=== PATIENT | male | born 1995 | race African-American/Black ===

== ENCOUNTER 2024-06-28 10:54 | Outpatient (AMB) | payer OTHER, SELFPAY ==
--- NOTE | 2024-06-28 11:09 | MHC.PC.OV ---
Vital Signs 06/28/24 11:15 Height 5 ft 9 in Weight 224 lb 2 oz BMI 33.1 BP 122/70 Blood Pressure Location Lt brachial Position Sitting Respiration 12 Pulse 69 Pulse Source Pulse Oximeter Pulse Oximetry (%) 97 Oxygen Delivery Method Room Air Intake Visit Reasons: npv Intake Note: new patient to establish care and patient also needs refill on adhd med. Pearl Glue Operator Required: No Allergies No Known Allergies Allergy (Verified 06/28/24 11:46) Medication List - Last Reconciled 06/28/24 by Magui Barone, REGISTERED VETERINARY TECHNICIAN- dextroamphetamine-amphetamine 20 mg ER (Adderall XR) 20 mg PO DAILY Tobacco use date assessed: 06/28/24 Dental Screening Dental Screen Date: 06/28/24 Did you have a dental visit in the last 12 months?: Yes Did you have a dental problem in the last 6 months where you did not have access to dental care?: No Was dental information given to patient?: Patient has dentist HPI HPI Comments History of Present Illness Details 29 y/o M with ADHD, obesity Surgery: none 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 ADHD - well controlled on Adderal ER. Moves q 1 year d/t sig other schooling. Needs new med prescriber otherwise mood stable. no need for counselor Feels well. ROS: negative Exam: General: Well developed, well nourished, in no acute distress. Appears stated age. Head: Normocephalic, atraumatic. Eyes: Pupils are equal, round and reactive to light and accommodation. Conjunctivae are clear. Vision grossly normal. Ears: TMs clear AU, EACS WNL Nose: Patent, without discharge.Mouth: There are no ulcers or lesions noted. No inflammation, no post nasal drip, no plaques nor exudates. Neck: Supple, no adenopathy or thyromegaly. Lungs: Clear to auscultation bilaterally. No rales, rhonchi or wheeze noted. Good air flow in all moy. Heart: Regular rate and rhythm. No murmurs, click, rubs or gallops are noted. Abdomen: Bowel sounds present in all quadrants. The abdomen is soft, nontender, with no masses or organomegaly noted. No hernias are noted. : Deferred. Reviewed WYATT & recommendations MSK: Joints are nontender, without swelling, redness, or effusions. Range of motion is observed to be normal. Pulses: Peripheral pulses are equal and palpable bilaterally. Extremities: No clubbing, cyanosis nor edema is noted. Neurologic: Gait and station normal. Cranial Nerves 2-12 intact. Motor strength grossly symmetrical and intact. No sensory loss. Balance normal. Skin: No rashes, ulcers, or lesions noted. Turgor is good. Skin color is good. Hair and nails are without abnormalities. Psych: Normal eye contact, affect and mood appropriate, and normal interactions. Patient is alert and appropriate to context. Plan: 90 day refill on adderral, transportation analyst reviewed refer to nn to [facility] care w med prescriber, preferably one that can RX in multiple states and follow him remotely if this is not doable, RTO in 3 months and i will manage routine screening labs today RTO 1 year CPE, sooner PRN PFSH Medical History (Updated 06/28/24 @ 12:51 by Magui Barone, [facility]) ADHD Asthma Surgical History (Updated 06/28/24 @ 11:24 by Deo Mcdonald MA) No pertinent past surgical history Family History (Updated 06/28/24 @ 11:26 by Deo Mcdonald MA) Mother Asthma Maternal Grandmother Asthma Diabetes Cancer Father HTN (hypertension) High cholesterol Cardiovascular disease Alcoholism Maternal Grandfather Diabetes Alcoholism Social History (Updated 06/28/24 @ 11:18 by Deo Mcdonald MA) Household Members: Significant Other Both parents involved: No Caregiver staying overnight: No Housing: Apartment Are you a primary manager intensive care unit to a significant other at home: No Do you presently have visiting nurse or other home services: No 75 years or older and lives alone: No Alcohol intake: never Patient Tobacco Use Status: Never used Tobacco e-Cigarette/Vaping Use: Never Used Second Hand Smoke Exposure: No Current occupational status: employed Current occupation: rn Cognitive needs: No Hearing needs: No Vision needs: Yes (wear glasses) Questionnaire PHQ-9 Over the last 2 weeks, how often have you been bothered by any of the following problems? 1. Little interest or pleasure in doing things: not at all 2. Feeling down, depressed, or hopeless: not at all 3. Trouble falling or staying asleep, or sleeping too much: not at all 4. Feeling tired or having little energy: not at all 5. Poor appetite or overeating: not at all 6. Feeling bad about yourself - or that you are a failure or have let yourself or your family down: not at all 7. Trouble concentrating on things, such as reading the newspaper or watching television: several days 8. Moving or speaking so slowly that other people could have noticed. Or the opposite - being so fidgety or restless that you have been moving around a lot more than usual: not at all 9. Thoughts that you would be better off or of hurting yourself in some way: not at all Total score: 1 Depression Screening Interpretation: Negative Depression Screening Done: Yes 62889 - PHQ-9 Billing: Yes Source: Developed by Drs. Wayne Nava, Leora Grider, Sen Templeton and colleagues, with an educational dashawn from [employer]. Thrive Questionnaire Date Thrive assessed: 06/28/24 I am a: Patient What is your living situation today?: I have a steady place to live Within the past 12 months, did the food you bought not last and you didn't have the money to get more?: Never true Within the past 12 months, did you worry whether your food would run out before you got money to buy more?: Never true Do you have trouble paying for medicines?: No Do you have trouble getting transportation to medical appointments?: No Do you have trouble paying your heating and electricity bill?: No Do you have trouble taking care of your child, family member or friend?: No Do you have trouble with day-to-day activities such as bathing, preparing meals, shopping, managing finances, etc.?: No Are you currently unemployed and looking for a job?: No Are you interested in more education?: No Please select the resources that you would like help with: None Currently or been in a relationship where the following occur: No concerns reported THRIVE Score: 0 AUDIT C Alcohol Use Questionnaire (AUDIT-C) 1. How often do you have a drink containing alcohol?: Never 3. How often do you have six or more drinks on one occasion?: Never Total Score: 0 Score Reviewed/Action Taken: Yes JACKIE-7 AMB Questionnaire JACKIE-7 Date JACKIE - 7 assessed: 06/28/24 Feeling nervous, anxious, or on edge: 0 = Not at all Not being able to stop or control worryin = Not at all Worrying too much about different things: 1 = Several days Trouble relaxin = Not at all Being so restless that it is hard to sit still: 1 = Several days Becoming easily annoyed or irritable: 0 = Not at all Feeling afraid as if something awful might happen: 0 = Not at all Total JACKIE-7 score (0-4 normal; 5-9 mild; 10-14 moderate; 15-21 severe): 2 Source: Developed by Drs. Wayne Nava, Leora Grider, Sen Templeton and colleagues, with an educational dashawn from [employer]. JACKIE-7 Assessment Billing JACKIE-7 Assessment Tool: JACKIE-7 Assessment 75319 Physical exam (Primary Care) Vital Signs: Last Vital Signs Pulse 69 06/28/24 11:15 Resp 12 06/28/24 11:15 BP 122/70 06/28/24 11:15 Pulse Ox 97 06/28/24 11:15 Oxygen Delivery Method Room Air 06/28/24 11:15 BMI result Body Mass Index 33.1 BMI Assessment/Plan discussion: High BMI High, discussed plan: lifestyle Tobacco/Smoking Status: Tobacco use Status Tobacco use date assessed 06/28/24 06/28/24 11:17 Patient Tobacco Use Status Never used Tobacco 06/28/24 11:18 e-Cigarette/Vaping Use Never Used 06/28/24 11:18 PHQ-9: PHQ-9 Score PHQ-9: Total score 1 06/28/24 11:46 Depression Screening Interpretation: Negative Thrive Assessment: Date of Thrive Assessment Date Thrive assessed 06/28/24 06/28/24 11:13 Currently or been in a relationship where the following occur: No concerns reported Coding Level of Care Code New Pt Prev Care 18-39yr(72775 Diagnoses Encounter for general adult medical examination without abnormal findings Z00.00 Attention deficit hyperactivity disorder (ADHD), predominantly inattentive type F90.0 Attention deficit-hyperactivity disorder type: predominantly inattentive BMI 35.0-35.9,adult Z68.35 Obesity (BMI 35.0-39.9 without comorbidity) E66.9 Laboratory exam ordered as part of routine general medical examination Z00.00 Pes planus of both feet M21.41; M21.42 Family history of early CAD Z82.49 Additional Codes JACKIE-7 Assessment Billing - JACKIE-7 Assessment Tool: JACKIE-7 Assessment 73321 ([id number]) PHQ-9 - 26310 - PHQ-9 Billing: Yes ([id number]) Assessment & Plan Assessment & Plan (1) Encounter for general adult medical examination without abnormal findings: Code(s): Z00.00 - Encounter for general adult medical examination without abnormal findings Category: Medical (2) ADHD: Code(s): F90.9 - Attention-deficit hyperactivity disorder, unspecified type Category: Medical Qualifiers: Attention deficit-hyperactivity disorder type: predominantly inattentive Qualified Code(s): F90.0 - Attention-deficit hyperactivity disorder, predominantly inattentive type (3) BMI 35.0-35.9,adult: Code(s): Z68.35 - Body mass index [BMI] 35.0-35.9, adult Category: Medical (4) Obesity (BMI 35.0-39.9 without comorbidity): Code(s): E66.9 - Obesity, unspecified Category: Medical (5) Laboratory exam ordered as part of routine general medical examination: Code(s): Z00.00 - Encounter for general adult medical examination without abnormal findings Category: Medical (6) Pes planus of both feet: Code(s): M21.41 - Flat foot [pes planus] (acquired), right foot; M21.42 - Flat foot [pes planus] (acquired), left foot Category: Medical (7) Family history of early CAD: Comment: Dad he thinks Code(s): Z82.49 - Family history of ischemic heart disease and other diseases of the circulatory system Category: Medical Plan . Orders: Orders Comprehensive [place]. Panel Fast Today Z00.00 - Encounter for general adult medical examination without abnormal findings Lipid Panel Today Z00.00 - Encounter for general adult medical examination without abnormal findings Microalbumin, Random (w Creat) Today Z00.00 - Encounter for general adult medical examination without abnormal findings TSH reflex Free T4 Today Z00.00 - Encounter for general adult medical examination without abnormal findings Hemoglobin A1c Today Z00.00 - Encounter for general adult medical examination without abnormal findings Vitamin B12 and Folate Today Z00.00 - Encounter for general adult medical examination without abnormal findings Referrals Nurse Navigator Referral F90.9 - Attention-deficit hyperactivity disorder, unspecified type Medications: New dextroamphetamine-amphetamine 20 mg ER (Adderall XR) 20 mg PO DAILY 90 caps 0RF Patient Instructions: Health screenings for men You should visit your health care provider regularly, even if you feel healthy. The purpose of these visits is to: Screen for medical issues Assess your risk for future medical problems Encourage a healthy lifestyle Update vaccinations and other preventive care services Help you get to know your provider in case of an illness Information Even if you feel fine, you should still see your provider for regular checkups. These visits can help you avoid problems in the future. For example, the only way to find out if you have high blood pressure is to have it checked regularly. High blood sugar and high cholesterol level also may not have any symptoms in the early stages. Simple blood tests can check for these conditions. There are specific times when you should see your provider or receive specific health screenings. The [place] Preventive Services Task Force publishes a list of recommended screenings. Below are screening guidelines for men ages 40 to 64. BLOOD PRESSURE SCREENING Have your blood pressure checked at least once every year. Watch for blood pressure screenings in your area. Ask your provider if you can stop in to have your blood pressure checked. Ask your provider if you need your blood pressure checked more often if: You have diabetes, heart disease, kidney problems, or are overweight or have certain other health conditions You have a first-degree relative with high blood pressure You are Black Your blood pressure top number is from 120 to 129 mm Hg, or the bottom number is from 70 to 79 mm Hg If the top number is 130 mm Hg or greater or the bottom number is 80 mm Hg or greater, this is considered stage 1 hypertension. Schedule an appointment with your provider to learn how you can lower your blood pressure. Effects of age on blood pressure CHOLESTEROL SCREENING Cholesterol screening should begin at age 35 for men with no known risk factors for coronary heart disease. Repeat cholesterol screening should take place: Every 5 years for men with normal cholesterol levels More often if changes occur in lifestyle (including weight gain and diet) More often if you have diabetes, heart disease, kidney problems, or certain other conditions COLORECTAL CANCER SCREENING If you are under age 45, talk to your provider about getting screened. You may need to be screened if you have a strong family history of colon cancer or polyps. Screening may also be considered if you have risk factors such as a history of inflammatory bowel disease or polyps. If you are age 45 to 75, you should be screened for colorectal cancer. There are several screening tests available: A stool-based fecal occult blood (gFOBT) or fecal immunochemical test (FIT) every year A stool sDNA test every 1 to 3 years Flexible sigmoidoscopy every 5 years or every 10 years with stool testing FIT done every year CT colonography (virtual colonoscopy) every 5 years Colonoscopy every 10 years You may need a colonoscopy more often if you have risk factors for colorectal cancer, such as: Ulcerative colitis A personal or family history of colorectal cancer A history of growths in your colon called adenomatous polyps DENTAL EXAM Go to the dentist once or twice every year for an exam and cleaning. Your dentist will evaluate if you have a need for more frequent visits. DIABETES SCREENING All adults who do not have risk factors for diabetes should be screened starting at age 35 and repeated every 3 years. If you have other risk factors for diabetes, such as a first degree relative with diabetes, overweight or obesity, high blood pressure, prediabetes, or a history of heart disease, you may be tested more often. If you are overweight and have other risk factors, such as high blood pressure and are planning to become , screening is recommended. EYE EXAM Have an eye exam every 2 to 4 years ages 40 to 54 and every 1 to 3 years ages 55 to 64. Your provider may recommend more frequent eye exams if you have vision problems or glaucoma risk. Have an eye exam that includes an examination of your retina (back of your eye) at least every year if you have diabetes. IMMUNIZATIONS Commonly needed vaccines include: Flu shot: get one every year COVID-19 vaccine: ask your provider what is best for you Tetanus-diphtheria and acellular pertussis (Tdap) vaccine: have as one of your tetanus-diphtheria vaccines if you did not receive it as an adolescent Tetanus-diphtheria: have a booster (or Tdap) every 10 years Varicella vaccine: receive 2 doses if you never had chickenpox or the varicella vaccine and were born in 1979 or after Hepatitis B vaccine: receive 2, 3, or 4 doses, depending on your exact circumstances, if you did not receive these as a child or adolescent, until age 59 Shingles (herpes zoster) vaccine: at or after age 50 Ask your provider if you should receive other immunizations, especially if you have certain medical conditions, such as diabetes or are at increased risk for some diseases such as pneumonia. INFECTIOUS DISEASE SCREENING Screening for hepatitis C: all adults ages 18 to 79 should get a one-time test for hepatitis C. Screening for human immunodeficiency virus (HIV): all people ages 15 to 65 should get a one-time test for HIV. Depending on your lifestyle and medical history, you may need to be screened for infections such as syphilis, chlamydia, and other infections. LUNG CANCER SCREENING You should have an annual screening for lung cancer with low-dose computed tomography (LDCT) if: You are age 50 to 80 years AND You have a 20 pack-year smoking history AND You currently smoke or have quit within the past 15 years OSTEOPOROSIS SCREENING If you are age 50 to 64 and have risk factors for osteoporosis, you should discuss screening with your provider. Risk factors can include long-term steroid use, low body weight, smoking, heavy alcohol use, having a fracture after age 50, or a family history of hip fracture or osteoporosis. Osteoporosis PHYSICAL EXAM All adults should visit their provider from time to time, even if they are healthy. The purpose of these visits is to: Screen for diseases Assess risk of future medical problems Encourage a healthy lifestyle Update vaccinations and other preventive care services Maintain a relationship with a provider in case of an illness Your height, weight, and body mass index (BMI) should be checked at every exam. During your exam, your provider may ask you about: Depression and anxiety Diet and exercise Alcohol and tobacco use Safety, such as use of seat belts and smoke detectors Your medicines and risk for interactions PROSTATE CANCER SCREENING If you're 55 through 69 years old, before having the test, talk to your provider about the pros and cons of having a PSA test. Ask about: Whether screening decreases your chance of dying from prostate cancer. Whether there is any harm from prostate cancer screening, such as side effects from testing or overtreatment of cancer when discovered. Whether you have a higher risk of prostate cancer than others. If you are age 55 or younger, screening is not generally recommended. You should talk with your provider about if you have a higher risk for prostate cancer. Risk factors include: Having a family history of prostate cancer (especially a brother or father) Being If you choose to be tested, the PSA blood test is repeated over time (yearly or less often), though the best frequency is not known. Prostate examinations are no longer routinely done on men with no symptoms. Prostate cancer SKIN EXAM Your provider may check your skin for signs of skin cancer, especially if you're at high risk. People at high risk include those who have had skin cancer before, have close relatives with skin cancer, or have a weakened immune system. TESTICULAR EXAM The US Preventive Services Task Force (USPSTF) now recommends against performing testicular self-exams. Doing testicular self-exams has been shown to have little to no benefit. Walk-In Care (Urgent Care): We Make it Easy Walk-in for urgent medical issues such as: ? Seasonal Allergies ? Insect Bites ? Cough ? Diarrhea ? Acute Asthma Attacks ? Back, Knee or Joint Pain ? Ear Infection ? Fever without a Rash ? Headaches ? Nausea ? [place] Eye, Rash or Skin Irritation ? Sore Throat ? Sports Physicals ? Vomiting Most insurances are accepted. Patients do not need to be part of the [facility] to seek care at the walk-in clinic. Locations [address] [place] [address] , [place] [address] ? [phone] [facility] in [place] provides services to ages 18 and over. Open Friday-Friday: 8 a.m. to 5 p.m. and Friday: 9 a.m. to 3 p.m.* *Hours may vary due to staffing availability. To confirm Walk-In Care hours in [place], please call [phone]. [address] [place] [address] ? [phone] [facility] in [place] provides services to ages 12 and over. Open Friday-Friday: 8 a.m. to 5 p.m. Hours may vary due to staffing availability. To confirm Walk-In Care hours in [place], please call [phone]. LABORATORY SERVICES: [facility] ? Primary Location [address] [place] [address] Friday through Friday 6:00 AM ? 5:00 PM Friday 7:00 AM ? 11:00 AM* [phone] The [facility] Lab is centrally located near the front entrance of the Medical Center for easy outpatient access. Convenient parking is provided for outpatients. *Hours may vary due to staffing availability. To confirm Laboratory hours for any location, please call [phone]. Offsite Location For your convenience, we offer offsite laboratory draw stations at the following locations: [address] [place] [address], [place] ? [facility] [address] [facility], [address], [place] Friday through Friday 7:30 AM ? 1:00 PM* [phone] *Hours may vary due to staffing availability. To confirm Laboratory hours for any location, please call [phone]. [place] ? [address], [place] Friday through Friday 6:00 AM ? 3:30 PM* Friday 6:30 AM ? 3 PM* [phone] *Hours may vary due to staffing availability. To confirm Laboratory hours for any location, please call [phone] [place] [address] Friday through Friday 7:30 AM ? 4:00 PM* [phone] *Hours may vary due to staffing availability. To confirm Laboratory hours for any location, please call [phone] [place] [address] Friday through 9:00 AM ? 4:00 PM* *Hours may vary due to staffing availability. To confirm Laboratory hours for any location, please call [phone]. Appointments are not necessary. Walk-ins are welcome. Like all the departments throughout the [facility], our Lab undergoes frequent reviews to ensure the quality and accuracy of test results, and our staff takes special pride in its status as a nationally accredited facility. Patient Portal: ONE PATIENT. ONE RECORD. BETTER CARE. [facility] has a fully integrated, cutting-edge mobile electronic health information system that has revolutionized the way we care for our patients and manage our organization. This system improves communication and coordination enabling us to provide safe, higher-quality care, and an overall positive experience for staff and patients. Our first priority, as always, is to deliver the highest quality care possible. The system is running in the background supporting that priority. This portal is for all [facility] services and practices. If you are experiencing any technical difficulties with enrolling or logging into the Patient Portal please complete the [facility] Patient Portal Technical Support Form. [facility] now offers a new secure on-line interactive tool for patients to review their health information ? Patient Portal. This interactive web portal will enable patients and their families to take an active role in their care by providing easy, secure access to their health information via the internet. The Patient Portal provides patients with instant access to their health information, including laboratory results, medications, allergies, demographic information, visit history, and more. In addition to managing their own care, parents and health care proxies with authorized consent will appreciate the ability to access the records of those individuals for whom they provide care. Please note: if you wish to gain access (Proxy) to another patient?s portal, you will be required to come to the Medical Records Department in person at [facility]. Both the patient giving proxy access and the proxy will need to provide photo identification and complete the appropriate authorization. The Patient Portal also allows track their appointments online. The [facility] Patient Portal also saves patients time by allowing them to submit updates to their demographic and contact information prior to their visits. Portal email notifications will also alert patients to any new activity on their portal, such as test results and new appointments. In order to initially enroll in the [facility] Patient Portal, you will need to enter some required information including the following: ? your [facility] Medical Record number ? your personal home email address ? name ? date of Please note: In order to enroll in the [facility] Patient Portal, we need to have your email address on file in your electronic medical record. The email address needs to be specific for one person (yourself) in order for your Portal enrollment to be successful. You can update your email address in person with our Registration staff when you are registering for a hospital visit. Otherwise, you will need to come to the Health Information Management (Medical Records) Department at [facility]. We are open from Friday ? Friday from 7:30 a.m. ? 4:30 p.m. You will be required to present a photo id. Once you have successfully enrolled in the Patient Portal, you will receive a one-time user id and password for the Portal, sent to your email address. This will allow you to log into the Patient Portal within 99 hrs and reset your own logon id and password, and define personal security questions. Once your permanent login and password have been set, you can log into the [facility] Patient Portal at any time via the blue button above or from the Portal Logon button on any page of the [facility] website. [facility] and [facility] encourage all of our patients to enroll in Patient Portal as it presents a valuable opportunity for patients and their families to actively participate in their care and stay healthy Welcome to [facility]. We look forward to working with you.
[2024-06-28 11:15] VITALS: BP 122/70; PULSE 69; RESP 12; O2SAT 97; BMI 33.1
--- OUTSIDE RECORDS SUMMARY | 2024-06-28 12:19 | XMS_ITS | Patient Health Record ---
Author Organization [facility] [employer] [facility] c Address [address] [place] [address] Care Team Providers Care Sustainability Consultant Name Role Phone SYLVESTER GARCIA Primary Care Provider BACILIO VERONICA Unavailable [phone] Allergies No Known Allergies Reason For Referral No Information Medications Medication SIG (Take, Route, Frequency, Duration) Notes Start Date End Date Status Adderall XR 20 MG 1 capsule Orally Once a day Active Mometasone Furoate 0.1 % 1 application E xternally Once a day for 30 days 07/22/2023 Active Biotin Active Multivitamin Active Collagen Active Social History Tobacco Use: Social History Observation Description Date Details (start date - stop date) Never Smoker NA - NA Tobacco Use/Smoking Question Answer Notes Are you a nonsmoker Additional Findings: Tobacco Non-User Current no n-smoker Problems Problem Type SNOMED Code ICD Code Onset Dates Problem Status W/U Status Risk Notes Problem Obesity (769702102) Obesity (BMI 30-39.9) (E66.9) Active confirmed Problem [id number] Attention defici t hyperactivity disorder (ADHD), unspecified ADHD type (F90.9) Active confirmed Problem Obese class I (0118080061544 07) BMI 33.0-33.9,adult (Z68.33) Active confirmed Problem BMI 30+ - obesity (235199013) BMI 32.0-32.9,adult (Z68.32) Active confirmed Vital Signs Heart Rate 64 /min 07/22/2023 Oximetry 98 % 07/22/2023 Blood pressure diastolic 82 mm Hg 07/22/2023 Height 68 in 07/22/2023 Blood pressure systolic 120 mm Hg 07/22/2023 Weight 213 lbs 07/22/2023 BMI 32.38 kg/m2 07/22/2023 Encounters Encounter Location Date Provider Diagnosis [facility] [address] [place] [address] 07/22/2023 BACILIO VERONICA Other specified counseling Z71.89 ; Hyperpigmentation L81.9 ; BMI 32.0-32.9,adult Z68.32 and Obesity (BMI 30-39.9) E66.9 Assessments Encounter Date Diagnosis (ICD Code) Assessment Notes Treatment Notes Treatment Clinical Notes Section Notes 07/22/2023 Other specified counseling (ICD-10 - Z71.89) 07/22/2023 Hyperpigmentation (ICD-10 - L81.9) Acute, unsure of etiology, advised to use mometasone, monitor for changes and consider derm f/u [facility] 07/22/2023 BMI 32.0-32.9,adult (ICD-10 - Z68.32) 07/22/2023 Obesity (BMI 30-39.9 ) (ICD-10 - E66.9) Weight above normal limits. Recommended diet and exercise as tolerated. Plan Of Treatment No Information Insurance Providers Payer Name Payer Address Payer Phone Subscriber Number Group Number Insured Name Patient Relationship to Insured Coverage Start Date Coverage End Date [employer] [facility] [address] [place] [id number] Child - Insured has Financial Responsibility Medical (General) History Medical History History ICD Code ADHD
--- OUTSIDE RECORDS SUMMARY | 2024-06-28 12:19 | XMS_ITS ---
Author Organization [facility] c Address [address] [place] [address] Care Team Providers Care Pilot Instructor Name Role Phone SYLVESTER GARCIA Primary Care Provider [phone] REASON FOR VISIT Bloodwork results Encounters Encounter Location Date Provider Diagnosis [facility] [address] [place] [address] 01/15/2023 SYLVESTER GARCIA Plan Of Treatment No Information Progress Notes * ARA ANDERSOB:1995 (27 yo M)Acc No.[id number]:01/15/2023 Patient:?ANDREA ANDERS :1995???Age:27 Y???Sex:Male Address:[address], [address], [place] [address] * true * Date:? Generated for Colette chanel/Brock/eTransmitting on:?06/28/2024 12:18 PM EDT
--- OUTSIDE RECORDS SUMMARY | 2024-06-28 12:19 | XMS_ITS ---
Author Organization [facility] Address [address] [place] [address] Care Team Providers Care Trumpet Teacher Name Role Phone SYLVESTER GARCIA Primary Care Provider [phone] REASON FOR VISIT PE Encounters Encounter Location Date Provider Diagnosis [facility] [address] [place] [address] 01/01/2024 SYLVESTER GARCIA Attention deficit hyperactivity disorder (ADHD), unspecified ADHD type F90.9 ; Screening for lipid disorders Z13.220 ; Encounter for general adult medical examination with abnormal findings Z00.01 and Screening for thyroid disorder Z13.29 Assessments Encounter Date Diagnosis (ICD Code) Assessment Notes Treatment Notes Treatment Clinical Notes Section Notes 01/01/2024 Attention deficit hyperactivity disorder (ADHD), unspecified ADHD type (ICD-10 - F90.9) Seeing Psychiatry who is managing medications for this diagnosis. Stable. 01/01/2024 Screening for lipid disorders (ICD-10 - Z13.220) Due for FBW. Check labs and advise. 01/01/2024 Encounter for general adult medical examination with abnormal findings (ICD-10 - Z00.01) FLUVAX - UTD. ADACEL - UTD. COVID Series completed. RTO 1 year for PE. 01/01/2024 Screening for thyroid disorder (ICD-10 - Z13.29) Due for FBW. Check labs and advise. Plan Of Treatment Treatment Notes Assessment Notes Attention deficit hyperactiv ity disorder (ADHD), unspecified ADHD type Seeing Psychiatry who is managing medications for this diagnosis. Stable. Screening for lipid disorders Due for FB W. Check labs and advise. Encounter for general adult medical examination with abnormal findings FLUVAX - UTD. ADACEL - UTD. COVID Series completed. RTO 1 year for PE. Screening for thyroid disorder Due for F BW. Check labs and advise. Progress Notes * ARA ANDERSOB:1995 (29 yo M)Acc No.[id number]:01/01/2024 Progress Notes Patient:?KENDRICK ANDERS Appointment Provider:?RE ORELLANA :1995???Age:28 Y???Sex:Male New e:01/01/2024 Address:[address], [address], [place] Subjective: * Chief Complaints: * ???1. PE. * HPI: ???Constitutional:? Patient to office for PE. Psychiatrist - Dx ADHD - Adderall Rx by the Psychiatriast. Diet: Avoids greasy, fried, milks, cheeses - causes loose stool. Exercise:? 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 Dental: Due. Eyes: UTD - 1 x year, wear prescriptive glasses. FH: HTN, High Cholesterol, Hyperlipidemia, CHF, Crohns (Father). Mother - Breast CA, Tremors. + family history of colon CA (paternal GF), No black, blood, or tarry stool. * ROS:?As per the history of presenting illness. * Medical History:? Objective: * Vitals:? * ???Past Orders: ???Lab:*CBC (INCLUDES DIFF/P LT) (Order Date - 12/30/2022) (Collection Date & Time - 01/01/2023 08:43 AM) ? Value Reference Range ?WHITE BLOOD CELL COUNT 7.6 3.8-10.8 - Thousand/uL ?RED BLOOD CELL COUNT 4.82 4.20-5.80 - Million/uL ?HEMOGLOBIN 14.6 13.2-17.1 - g/dL ?HEMATOCRIT 43.7 38.5-50.0 - % ?MCV 90.7 80.0-100.0 - fL ?MCH 30.3 27.0-33.0 - pg ?MCHC 33.4 32.0-36.0 - g/d L ?RDW 11.7 11.0-15.0 - % ?PLATELET COUNT 338 140-4 00 - Thousand/uL ?NEUTROPHILS 51 - % ?ABSOLUTE NEUTROPHILS 3876 4562-9931 - cells/uL ?LYMPHOCYTES 35.2 - % ?ABSOLUTE LYMPHOCYTES 2675 850-3900 - cells/uL ?MONOCYTES 11.3 - % ?ABSOLUTE MONOCYTES 859 2 00-950 - cells/uL ?EOSINOPHILS 2.0 - % ?ABSOLUTE EOSINOPHILS 152 15-500 - cells/uL ?BASOPHILS 0.5 - % ?ABSOLUTE BASOPHILS 38 0 -200 - cells/uL ?MPV 10.9 7.5-12.5 - fL ?Notes: [place] - labs look excellent. We can repeat all labs on yearly basis. ???Lab:*COMPREHENSIVE METABO LIC PANEL (Order Date - 12/30/2022) (Collection Date & Time - 01/01/2023 08:43 AM) ? Value Reference Range ?GLUCOSE 94 65-99 - mg/d L ?UREA NITROGEN (BUN) 11 7-25 - mg/dL ?CREATININE 0.96 0.60-1.24 - mg/dL ?BUN/CREATININE RATIO SEE NOTE: 6-22 - (calc) ?SODIUM 139 135-146 - mmo l/L ?POTASSIUM 5.2 3.5-5.3 - mmol/L ?CHLORIDE 105 98-110 - mm ol/L ?CARBON DIOXIDE 30 20-32 - mmol/L ?CALCIUM 9.7 8.6-10.3 - m g/dL ?PROTEIN, TOTAL 7.6 6.1-8 .1 - g/dL ?ALBUMIN 4.5 3.6-5.1 - g/ dL ?GLOBULIN 3.1 1.9-3.7 - g /dL (calc) ?ALBUMIN/GLOBULIN RATIO 1.5 1.0-2.5 - (calc) ?BILIRUBIN, TOTAL 0.3 0.2 -1.2 - mg/dL ?ALKALINE PHOSPHATASE 65 36-130 - U/L ?AST 17 10-40 - U/L ?ALT 25 9-46 - U/L ?EGFR 112 > OR = 60 - mL/ min/1.73m2 ?Notes: [facility] - labs look excellent. We can repeat all labs on yearly basis. ???Lab:*LIPID PANEL (Order D ate - 12/30/2022) (Collection Date & Time - 01/01/2023 08:43 AM) ? Value Reference Range ?TRIGLYCERIDES 90 <150 - mg/dL ?CHOLESTEROL, TOTAL 167 < 200 - mg/dL ?HDL CHOLESTEROL 44 > OR = 40 - mg/dL ?LDL-CHOLESTEROL 105 H - mg /dL (calc) ?CHOL/HDLC RATIO 3.8 <5.0 - (calc) ?NON HDL CHOLESTEROL 123 <130 - mg/dL (calc) ?Notes: [facility] - labs look excellent. We can repeat all labs on yearly basis.Ryan Yee 01/02/2023 10:40:06 AM EDT > Notified via portal message ???Lab:*TSH W/REFLEX TO FT4 (Order Date - 12/30/2022) (Collection Date & Time - 01/01/2023 08:43 AM) ? Value Reference Range ?TSH W/REFLEX TO FT4 2.94 0.40-4.50 - mIU/L ?Notes: [facility] - labs look excellent. We can repeat all labs on yearly basis. * Examination: ???General Examination: ???General: WDWN, A/O x 3. Psych: Mood and affect appropriate. Skin: Warm, dry, no rash. Head: NC, AT. Eyes: PERRL. Sclerae anicteric. Conjunctiva pink. Nose: Clear. Ears: TM clear, no bulging or retraction. Mouth: Moist mucous membranes. Tongue and Uvula midline. Neck: Supple. Freely mobile. No thyromegaly. Carotids without thrills/bruits. Lungs: Clear to auscultation. Heart: Regular rate, rhythm. S1 and S2 normal. No murmurs. Abdomen: Soft. NTND. No hepatosplenomegaly. Lymphatics: No cervical or supraclavicular adenopathy. Extremities: Warm, well-perfused. Radial and Posterior Tibial Pulses 2+/4. No peripheral edema or calf tenderness. Musculoskeletal: Normal PROM, AROM, no deformity. Neuro: Grossly non-focal. Stable gait. Assessment: * Assessment: 1.?Encounter for general ovidio lt medical examination with abnormal findings - Z00.01 (Primary)???2.?Attention deficit hyperactivity disorder (ADHD), unspecified ADHD type - F90.9???3.?Screening for lipid disorders - Z13.220???4.?Screening for thyroid disorder - Z13.29??? Plan: * Treatment: 2.?Attention deficit hyperac tivity disorder (ADHD), unspecified ADHD type? Notes: Seeing Psychiatry who is managing medications for this diagnosis. Stable. ?? 3.?Screening for lipid disor ders? Notes:Due for FBW. Check labs and advise.?? 4.?Screening for thyroid dis order? Notes:Due for FBW. Check labs and advise.?? * Care Plan Details* * Electronic signature of ANDR NEL GARCIA PA-C on 06/28/2024 at 12:19 PM EDT Sign off status: Pending * Appointment Provider:?RE ORELLANA Date:?01/01/2024 Generated for Colette chanel/Brock/eTransmitting on:?06/28/2024 12:19 PM EDT History and Physical Notes * HPI (History of Present Illness) Category Sub-Category Detail Notes Category Not es Constitutional Patient to office for PE. Psychiatrist - Dx ADHD - Adderall Rx by the Psychiatriast. Diet: Avoids greasy, fried, milks, cheeses - causes loose stool. 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 Eyes: UTD - 1 x year, wear prescriptive glasses. FH: HTN, High Cholesterol, Hyperlipidemia, CHF, Crohns (Father). Mother - Breast CA, Tremors. + family history of colon CA (paternal GF), No black, blood, or tarry stool. Examination Category Sub-Category Detail Notes Category Not es General Examination General: WDWN, A/O x 3. Psych: Mood and affect appropriate. Skin: Warm, dry, no rash. Head: NC, AT. Eyes: PERRL. Sclerae anicteric. Conjunctiva pink. Nose: Clear. Ears: TM clear, no bulging or retraction. Mouth: Moist mucous membranes. Tongue and Uvula midline. Neck: Supple. Freely mobile. No thyromegaly. Carotids without thrills/bruits. Lungs: Clear to auscultation. Heart: Regular rate, rhythm. S1 and S2 normal. No murmurs. Abdomen: Soft. NTND. No hepatosplenomegaly. Lymphatics: No cervical or supraclavicular adenopathy. Extremities: Warm, well-perfused. Radial and Posterior Tibial Pulses 2+/4. No peripheral edema or calf tenderness. Musculoskeletal: Normal PROM, AROM, no deformity. Neuro: Grossly non-focal. Stable gait.
--- OUTSIDE RECORDS SUMMARY | 2024-06-28 12:19 | XMS_ITS ---
Author Organization [facility] c Address [address] [place] [address] Care Team Providers Care Ad Clerk Name Role Phone SYLVESTER GARCIA Primary Care Provider BACILIO VERONICA [phone] Allergies No Known Allergies REASON FOR VISIT dark brown spots arms & legs 2 days Medications Medication SIG (Take, Route, Frequency, Duration) [...] Problem Status W/U Status Risk Notes Problem BMI 30+ - obesity (805711829) BMI 32.0-32.9,a dult (Z68.32) Active confirmed Vital Signs Blood pressure systolic 120 mm Hg 07/22/19 24 Blood pressure diastolic 82 mm Hg 024 Heart Rate 64 /min 07/22/2023 Height 68 in 07/22/2023 Weight 213 lbs 07/22/2023 BMI 32.38 kg/m2 07/22/2023 Oximetry 98 % 07/22/2023 Encounters Encounter Location Date Provider Diagnosis [facility] [address] [place] [address] 07/22/2023 BACILIO VERONICA Other specified counseling Z71.89 [...] and exercise as tolerated. Plan Of Treatment Medication Medication Name Sig Start Date Stop Date Notes Mometasone Furoate 0.1 % 1 application E xternally Once a day for 30 days 07/22/2023 Treatment Notes Assessment Notes Hyperpigmentation Acute, unsure of zacarias ology, advised to use mometasone, monitor for changes and consider derm f/u [facility]I Obesity (BMI 30-39.9) Weight above lauro l limits. Recommended diet and exercise as tolerated. Progress Notes * ARA ANDERSOB:1995 (28 yo M)Acc No.[id number]:07/22/2023 Progress Notw Patient:?ANDREA ANDERS Appointment Provider:?RE NUR :1995???Age:28 Y???Sex:Male New e:07/22/2023 Address:[address] [place] [address] [address], [address], [place] Pcp:SYLVESTER GARCIA Subjective: * Chief Complaints: * ???Dark brown spots arms & l egs 2 days * HPI: ???Constitutional:? C/o dark spots n leg x 1 day, pt is unsure if it has started earlier, was brought to his attention by GF admits to recent return form mariely located on arms and legs denies itching, burning, pain denies recent change in creams or detergents. * ROS:?All Other Systems:?Review of Systems (ROS)?All others negative except those mentioned in HPI.? * Medical History:? * Surgical History:?Denies Pas t Surgical History * Hospitalization/Major Diagno stic Procedure:?Denies Past Hospitalization * Family History:?Father: emelia e, heart disease (stents) ; hypertension ; hyperlipidemia.?Mother: alive, breast cancer ; hypertension.? family hx of lung cancer ; hypertension. * Social History:?Tobacco Use:?Tobacco Use/Smoking?Are you a?nonsmoker ?Additional Findings: Tobacco Non-User?Current non-smoker * Medications:?TakingCollagen Biotin Multivitamin Adderall XR 20 MG Capsule Extended Release 24 Hour 1 capsule Orally Once a day Medication List reviewed and reconciled with the patientTaking Collagen Taking Biotin Taking Multivitamin Taking Adderall XR 20 MG Capsule Extended Release 24 Hour 1 capsule Orally Once a day Medication List reviewed and reconciled with the patient * Allergies:?N.K.D.A.no[Allerg ies Verified] Objective: * Vitals:?HR:64/min, BP:120/82 mm Hg, Wt:213lbs, BMI:32.38Index, Ht: 68 in, Oxygen sat:98%, Ht-cm: 172.72 cm, Wt-k.62 kg. * Examination: ???General Examination: ?GENERAL APPEARANCE:?pleasant, well nourished, in no acute distress.?HEAD:?normocephalic.?SKIN:?Arms and leg. Small areas of hyperpigmentation, not raised, no decoration, warmth or induration.?LUNGS:?clear to auscultation bilaterally.?HEART:?regular rate and rhythm.?NEUROLOGIC:?nonfocal.? Assessment: * Assessment: 1.?Hyperpigmentation - L81.9 (Primary)?2.?Other specified counseling - Z71.89?3.?BMI 32.0-32.9,adult - Z68.32?4.?Obesity (BMI 30-39.9) - E66.9? Plan: * Treatment: 2.?Obesity (BMI 30-39.9)? Notes: Weight above normal limits. Recommended diet and exercise as tolerated.?? * Procedure Codes:?1160F RVW M EDS BY RX/DR IN [id number] MED LIST DOCD IN [facility] * * Sign off status: Completed true * Appointment Provider:?RE NUR Date:?07/22/2023 Generated for Colette chanel/Brock/Gildardo on:?06/28/2024 12:19 PM EDT History and Physical Notes * Examination Category Sub-Category Detail Notes Category Not es General Examination GENERAL APPEARANCE: pleasant , well nourished, in no acute distress HEAD: normocephalic HEART: regular rate and rhy thm LUNGS: clear to auscultatio n bilaterally NEUROLOGIC: nonfocal SKIN: Arms and leg. Small areas of hyperpigmentation, not raised, no decoration, warmth or induration
--- OUTSIDE RECORDS SUMMARY | 2024-06-28 12:19 | XMS_ITS | Clinical Summary ---
Author Organization [facility] ([facility] [[email or web address] Address [address] [place] [address] Care Team Providers Care Silk Spreader Name Role Phone Unavailable Primary Care Provider Unavailabl e Allergies No known active allergies Medications * This document contains information received from the source organization and may not represent a complete record from that organization. No known medications Social History Tobacco Use Types Packs/Day Years Used Date Smoking Tobacco: Never Smokeless Tobacco: Never Alcohol Use Standard Drinks/Week Comments Never 0 (1 standard drink = 0.6 oz pur e alcohol) AUDIT-C Answer Date Recorded Q1: How often do you have a drink containing alc ohol? Never 10/29/2019 Average Number of Drinks Not on file 020 Frequency of Binge Drinking Not on file 10/19 Sex and Gender Information Value Date Recorded Sex Assigned at Not on file Legal Sex Male 6:15 PM EDT Gender Identity Not on file Sexual Orientation Not on file Last Filed Vital Signs Vital Sign Reading Time Taken Comments Blood Pressure 130/75 10/29/2019 7:26 PM EDT Pulse 86 10/29/2019 7:26 PM EDT Temperature 37.5 ??C (99.5 ??F) 10/29/2019 7:26 PM ED T Respiratory Rate 18 10/29/2019 7:26 PM EDT Oxygen Saturation 100% 10/29/2019 7:26 PM EDT Inhaled Oxygen Concentration - - Weight 105.3 kg (232 lb 2.3 oz) 10/29/2019 7:22 PM EDT Height 175 cm (5' 8.9 ) 10/29/2019 7:22 PM EDT Body Mass Index 34.38 10/29/2019 7:22 PM EDT Plan of Treatment Health Maintenance Due Date Last Done Comments HIV Screening (Once) 1995 Hepatitis C Screening (Once) 1995 HPV Vaccines (1 - Male 3-dos e series) 2012 Hepatitis B Vaccine (1 of 3 - 19+ 3-dose series) 2016 COVID-19 Vaccine (3 - 2023-2 5 season) 2023 05/05/2021, 09/09/2020 Influenza Vaccine (#1) 2024 2, 12/09/2020, 07/05/2019 Tetanus Vaccine (2 - Td or Tdap) 12/09/2030 12/09/2020 Zoster Vaccine (1 of 2) 2047 Hepatitis A Vaccine Aged Out No longe r eligible based on patient's age to complete this topic Meningococcal B Vaccine Aged Out No l onger eligible based on patient's age to complete this topic Meningococcal Vaccine Aged Out No elias krystle eligible based on patient's age to complete this topic Pneumonia Age 0-64 Aged Out No longer eligible based on patient's age to complete this topic Insurance
== END 2024-06-28 12:04 | disposition home or self-care (01) ==
PROVIDERS: PCP Internal Medicine; Visit Provider Nurse Practitioner Family
DX: Z00.00 Encounter for general adult medical examination without abnormal findings (principal); F90.0 Attention-deficit hyperactivity disorder, predominantly inattentive type; Z68.35 Body mass index [BMI] 35.0-35.9, adult; E66.9 Obesity, unspecified; M21.41 Flat foot [pes planus] (acquired), right foot; M21.42 Flat foot [pes planus] (acquired), left foot; Z82.49 Family history of ischemic heart disease and other diseases of the circulatory system

== ENCOUNTER → 2024-06-28 10:54 | Outpatient (BNVA) | payer OTHER, SELFPAY | PROVIDERS: PCP Internal Medicine; Visit Provider Nurse Practitioner Family | DX: Z00.00 Encounter for general adult medical examination without abnormal findings (principal); F90.0 Attention-deficit hyperactivity disorder, predominantly inattentive type; E66.9 Obesity, unspecified; Z68.35 Body mass index [BMI] 35.0-35.9, adult; M21.41 Flat foot [pes planus] (acquired), right foot; M21.42 Flat foot [pes planus] (acquired), left foot; Z82.49 Family history of ischemic heart disease and other diseases of the circulatory system | CPT/HCPCS: 96127 ==

== ENCOUNTER 2024-06-28 12:06 | Outpatient (REF) | payer OTHER, SELFPAY ==
--- OUTSIDE RECORDS SUMMARY | 2024-06-28 13:47 | XMS_ITS | Clinical Summary ---
Author Organization [facility] ([facility]) Address [address] [place] [address] Care Team Providers Care Airplane Tube Builder Name Role Phone Unavailable Primary Care Provider [...]
[2024-06-28 14:49] LABS: Estimated Average Glucose 114 mg/dL; Hemoglobin A1c % 5.6 % (<6.0)
[2024-06-28 15:00] LABS: Creatinine Urine 236.55 mg/dL; Microalbum/Creatinine Ratio Ur 4.2 ug/mg cr (<30)
[2024-06-28 15:11] LABS: Alanine Aminotransferase 37 U/L (0-40); Albumin Level 4.3 g/dL (3.5-5.0); Alkaline Phosphatase 59 U/L (39-117); Anion Gap 9 (12-20); Aspartate Amino Transferase 22 U/L (5-37); Bilirubin Total 0.2 mg/dL (0.0-1.0); Blood Urea Nitrogen 9 mg/dL (9-16); Calcium 9.1 mg/dL (8.4-10.2); Carbon Dioxide 27 mmol/L (22-29); Chloride 108 mmol/L (96-108); Cholesterol 170 mg/dL (<200); Estimated Glomerular Filt Rate > 60; Glucose Fasting 93 mg/dL (60-99); HDL Cholesterol 44 mg/dL (>40); LDL Cholesterol Calculated 105 mg/dL (<100); Sodium 140 mmol/L (135-145); Total Protein 7.9 g/dL (6.5-8.0); Triglycerides 105 mg/dL (<150)
[2024-06-28 15:21] LABS: TSH reflex Free T4 2.23 uIU/mL (0.32-4.0)
[2024-06-28 15:36] LABS: Vitamin B12 547 pg/mL (200-900)
== END 2024-06-28 12:07 | disposition home or self-care (01) ==
LOC: HO.WFDLDS 12:06
PROVIDERS: Visit Provider Nurse Practitioner Family
DX: Z00.00 Encounter for general adult medical examination without abnormal findings (principal); Z13.1 Encounter for screening for diabetes mellitus; Z13.6 Encounter for screening for cardiovascular disorders
CPT/HCPCS: 36415; 80053; 80061; 82043; 82570; 82607; 82746; 83036; 84443